=== PATIENT | female | born 1995 | race Two or more races ===

== ENCOUNTER 2018-05-10 13:44 | Emergency (ER) | payer OTHER ==
[~2018-05-10] VITALS: Ht 154.9 cm; Wt 77.1 kg
[2018-05-10 13:52] VITALS: Ht 154.9 cm; Wt 77.1 kg
[2018-05-10 14:22] LABS: BASOPHIL % 0.3 % (0-2); PLATELET COUNT 352 x10^3mcL (130-400); RED CELL DISTRIBUTION WIDTH 13.9 % (11.5-14.5)
[2018-05-10 14:30] LABS: CALCIUM 9.7 mg/dL (8.5-10.1); CARBON DIOXIDE 27.4 mmol/L (21-32); CHLORIDE SERUM 100 mmol/L (98-107); GFR1 > 60 mL/min; GLUCOSE SERUM 216 mg/dL (74-106); POTASSIUM SERUM 3.5 mmol/L (3.5-5.1); SODIUM SERUM 136 mmol/L (136-145)
[2018-05-10 14:47] LABS: ALKALINE PHOSPHATASE 236 U/L (46-116); ALT/SGPT 27 U/L (14-59); AST/SGOT 16 U/L (15-37); BILIRUBIN TOTAL 0.5 mg/dL (0.20-1.00); TOTAL PROTEIN, SERUM 8.1 g/dL (6.4-8.2)
[2018-05-10 16:17] VITALS: BP 116/75
== END 2018-05-10 16:17 | disposition home or self-care (01) ==
LOC: ED 13:44
PROVIDERS: Emergency Medicine
DX: R55 Syncope and collapse (principal); E10.8 Type 1 diabetes mellitus with unspecified complications
CPT/HCPCS: J7030; Q0092